=== PATIENT | female | born 1975 | race Caucasian/White ===

== ENCOUNTER 2019-07-03 04:57 | Emergency (ER) | payer MEDICAID ==
[~2019-07-03] VITALS: Ht 172.7 cm; Wt 64.0 kg
[2019-07-03 05:07] VITALS: BP 128/72
--- NOTE | 2019-07-03 08:33 | NUR ---
PT GIVEN SACK LUNCH AND A TAXI IS CALLED TO GIVE HER A RIDE [facility]. PT GIVEN A BLANKET WHILE WAITING IN LOBBY FOR HER RIDE.
== END 2019-07-03 08:36 | disposition home or self-care (01) ==
LOC: ER 04:59 → CANBEDREQ 08:25 → ER 08:36
DX: R42 Dizziness and giddiness (principal); Z59.0 Homelessness; Z88.8 Allergy status to other drugs, medicaments and biological substances
CPT/HCPCS: 99281